=== PATIENT | male | born 1970 | race Caucasian/White ===

== ENCOUNTER 2018-04-26 17:48 | Emergency (ER) | payer SELFPAY ==
[2018-04-26 17:49] VITALS: BP 157/94; PULSE 84; RESP 24; TEMP 38.9; O2SAT 95; BMI 31.4
[2018-04-26 18:48] LABS: Absolute Lymphocyte Count 1.01 X10^3/ul (0.83-4.51); Absolute Neutrophil Count 6.9 X10^3/uL (2.0-7.7); Basophil# 0.01 X10^3/uL; Basophil% 0.1 % (0-1); Eosinophil# 0.02 X10^3/uL; Eosinophils% 0.2 % (0-5); Hematocrit 43.9 % (40-54); Hemoglobin 14.7 g/dl (13.0-16.5); Lymphocyte # 1.01 X10^3/ul (4.0); Lymphocyte % 11.6 % (19-41); Mean Corp Hgb Conc 33.5 g/gl (32-36); Mean Corpuscular Hgb 29.7 pg (27.0-32.0); Mean Corpuscular Volume 88.7 fL (80-94); Mean Platelet Vol. 10.7 fl (6.2-12.0); Monocyte# 0.72 X10^3/uL; Monocyte% 8.3 % (0-10); Neutrophil # 6.94 X10^3/uL (2.7-7.7); Neutrophil % 79.7 % (47-70); Platelet Count 183 K/mm3 (150-450); RBC Distribution Width CV 13.1 % (11.6-14.6); RBC Distribution Width SD 42.2 fl (35.1-43.9); Red Blood Count 4.95 M/mm3 (4.6-6.2); White Blood Count 8.7 K/mm3 (4.4-11.0)
[2018-04-26] MEDS: Acetaminophen 500 MG Tablet 1000 MG PO (18:49)
[2018-04-26] MEDS: 0.9% Normal Saline 1,000 ML 999 ML IV (18:49)
[2018-04-26] MEDS: Ketorolac 30 MG/ML Syringe IV (18:49)
[2018-04-26] MEDS: Ondansetron 4 MG/2 ML Vial IV (18:50)
[2018-04-26 18:54] LABS: POSITIVE COUNT NO; POSITIVE DIFFERENTIAL NO; POSITIVE MORPHOLOGY NO
[2018-04-26 18:59] LABS: ALB/GLOB Ratio 0.9 RATIO (0.9-2.4); AST(SGOT) 18 U/L (15-37); Alanine Aminotransfer ALT/SGPT 28 U/L (16-61); Albumin, Serum 3.5 g/dL (3.2-5.0); Alkaline Phosphatase 61 U/L (45-117); Anion Gap 9 (5-15); BUN 8 mg/dL (7-18); BUN/Creat Ratio 8.4 RATIO (10-20); Calcium,Total 8.7 mg/dL (8.5-10.1); Chloride 104 mmol/L (98-107); Creatinine, Serum 0.96 mg/dL (0.70-1.30); EST Glomerular Filtration Rate 89 mL/min (>60); Est Glom Filt Rate - Afr Amer 108 mL/min (>60); Estimated Creatinine Clearance 92.03 ml/min; Globulin 3.9 g/dL (2.2-4.2); Glucose 124 mg/dL (74-106); Lactic Acid 1.3 mmol/L (0.4-2.0); Potassium 3.5 mmol/L (3.5-5.1); Protein, Total 7.4 g/dL (6.4-8.2); Sodium Level 137 mmol/L (136-145)
[2018-04-26 19:16] VITALS: BP 144/77; PULSE 74; RESP 17; O2SAT 95
[2018-04-26 19:17] LABS: Bacteria 0 SEEN /hpf (None Seen); Mucous, Urine 0 SEEN /hpf (<or=2+); Red Blood Cells-Urine 0 SEEN /hpf (0-5); Squamous Epithelial Cells - UA 0 SEEN /hpf (0-5); White Blood Cells 0 SEEN /hpf (0-5)
[2018-04-26 19:52] LABS: Color, Urine Yellow (Yellow); Glucose, Dipstick Normal (Normal); Ketone-Dipstick Negative (Negative); Leukocyte Esterase-Dipstick Negative /ul (Negative); Nitrite-Dipstick Negative (Negative); Occult Blood-Urine 50 /ul (Negative); Protein-Dipstick Negative (Negative); Urine Bilirubin Dipstick Negative (Negative); Urine Clarity Clear (Clear); Urine Urobilinogen 4 mg/dl (Normal)
[2018-04-26 20:04] VITALS: BP 144/91; PULSE 74; RESP 15; TEMP 37.6; O2SAT 92
--- NOTE | 2018-04-26 21:21 | ED.VISSUMM ---
- ER Visit Summary Date of Service: 04/26/18 Chief Complaint: Fever History of Present Illness: The patient is a [address] Miramontes. He reports he has a fever that began 3 days ago. Spent up to 102?. He is a sore throat is generous in severity. He has a cough that is nonproductive. He has mild shortness of breath. Reports that his abdominal pain is diffuse 3 out of 10 severity. He is nauseated. Is not vomited. He has had 3 episodes of diarrhea today. No blood in his stools or black tarry stools. States he has a headache that is 10 out of 10 severity. He has a history of similar headaches. He has generalized weakness. Physical Examination: Vitals: Stable. Afebrile. General: Well-nourished and well-developed. Head: Normocephalic atraumatic. Neck: Supple, no lymphadenopathy. No JVD. Nontender. Cardiovascular: Regular rate and rhythm. No murmurs. Respiratory: No respiratory distress. Clear to auscultation bilaterally. Abdominal: Soft, nontender, nondistended, normal bowel sounds. No guarding, rebound, or peritoneal signs. Back: Nontender. Extremities: Nontender, no edema. Skin: Normal color, no rash. Neurologic: Alert and oriented ?3. Cranial nerves II through XII are intact. Normal strength and sensation. Psych: Normal affect. Test Results: CBC is more for 7 neutrophils 80 lymphs at 12. Comes is more for glucose 124. Lactic acid is 1.2. LFTs are normal. UA is normal. Rapid strep is negative. Chest x-ray shows a left upper lobe focal infiltrate versus mass. Clinical Impression(s) from Imaging Studies Chest CT 04/26/18 19:36 IMPRESSION: There is a focal dense consolidation measuring up to 4.9 x 5.4 cm with air bronchograms that although may represent focal pneumonia neoplasm could have this appearance and should be excluded. There is reactive appearing mediastinal lymphadenopathy. Recommend consideration for follow-up rhonchi auscultated and/or PET scan when clinically appropriate. Electronically Signed: Aruna Urbina MD at 19:57 EDT Tel , Service support , Emergency Department Course and Treatment: Patient was given Toradol, Zofran, and a liter of normal saline. He is resting comfortably. He is given Tylenol and Levaquin p.o. I had a prolonged discussion the patient and his about the findings on the x-ray and CT. Treatment Plan: Patient will be discharged with a prescription for Levaquin. Instructed follow-up Dr. Miramontes in 1 week for repeat exam. He understands that he needs to have a chest x-ray to make sure that this infiltrate/mass has resolved. If it does not resolve then he needs to have another CT of the chest and further evaluation. Patient and his are happy with this plan. Return to the emergency department for any worsening symptoms. Disposition: To home in improved and stable condition. Impression: 1. Pneumonia, community-acquired. 2. Possible mass left upper lobe. This note was generated with [employer] dictation software. It may contain incorrect words, spelling, and punctuation that were not noted in review of the chart prior to signing ED Disposition - Plan for ED Patient: Disposition: Home or Assisted Living Chief Complaint: Fever Instructions: ED Pneumonia Adult Prescriptions: Levofloxacin [Levaquin] 750 mg PO DAILY #7 tablet Referrals: Vargas Miramontes MD [Primary Care Provider] - 1 Week
[2018-04-26] MEDS: levoFLOXacin 750 MG Tablet PO (21:25)
== END 2018-04-26 21:57 | disposition home or self-care (01) ==
PROVIDERS: Emergency Provider Emergency Medicine; Family Provider Family Medicine; PCP Family Medicine
DX: J18.9 Pneumonia, unspecified organism (principal); E78.00 Pure hypercholesterolemia, unspecified; F32.9 Major depressive disorder, single episode, unspecified; F41.9 Anxiety disorder, unspecified
CPT/HCPCS: 71046; 71250; 80053; 81001; 83605; 85025; 87040; 87086; 87880; 96361; 96374; 96375; 99285; J7030; A4216; J2405

== ENCOUNTER 2018-04-28 21:25 | Emergency (ER) | payer SELFPAY ==
[2018-04-28 21:26] VITALS: BP 139/89; PULSE 79; RESP 20; TEMP 38.4; O2SAT 98; BMI 32.6
--- NOTE | 2018-04-28 21:41 | ED.DCSUM_ITS ---
- ER Visit Summary Date of Service: 04/28/18 Chief Complaint: Fever and cough History of Present Illness: The patient is a [address] Miramontes. He reports his fever and cough began 5 days ago. He was seen in the emergency department 2 days ago and found to have a left upper lobe infiltrate. He has taken his Levaquin, but has not had his dose yet today. He reports that he continues to have fever and has been up to 101.8?. He has left ear pain that comes and goes. Is a mild sore throat. He denies any chest pain or shortness of breath. Reports that he has been nauseated and had a very poor appetite. He is crampy periumbilical pain is 5-10 severity. He has vomited once. No blood in his emesis. He complains of a headache is 10 out of 10 severity and diffuse myalgias. Physical Examination: Vitals: 101.2, 139/89, 79, 20, 98% room air which is not hypoxic. General: Well-nourished and well-developed. Head: Normocephalic atraumatic. Neck: Supple, no lymphadenopathy. No JVD. Nontender. Cardiovascular: Regular rate and rhythm. No murmurs. Respiratory: No respiratory distress. Clear to auscultation bilaterally. Abdominal: Soft, nontender, nondistended, normal bowel sounds. No guarding, rebound, or peritoneal signs. Back: Nontender. Extremities: Nontender, no edema. Skin: Normal color, no rash. Neurologic: Alert and oriented ?3. Cranial nerves II through XII are intact. Normal strength and sensation. Psych: Normal affect. Test Results: CBC is marked for 7 neutrophils 71 and leukocytes of 19. Chem-7 is marked potassium 3.4, BUN is 6, glucose 131. Lactic acid is normal. Chest x -ray shows increased size of left upper lobe infiltrate. CT brain shows no acute disease. Emergency Department Course and Treatment: Patient was treated with Toradol IV, Tylenol p.o., morphine IV, and Zofran IV. He is resting comfortably and feels much improved. He refused an LP. Treatment Plan: I discussed the patient the fact that his infiltrate looks worse. I do not know if this is because he has not had enough time for the antibiotics to help, or represents a treatment failure. I have offered him admission to the hospital. He has refused this. His curb 65 score is 0. His port score is 47. He will be discharged instructions to continue his Levaquin. Follow-up with Dr. Miramontes in 5-7 days for another exam. Be given a prescription for Zofran. Return to the emergency department for any worsening symptoms. Disposition: To home in improved and stable condition. Impression: 1. Pneumonia, community-acquired. This note was generated with [employer] dictation software. It may contain incorrect words, spelling, and punctuation that were not noted in review of the chart prior to signing ED Disposition - Plan for ED Patient: Chief Complaint: General Illness Instructions: ED Pneumonia Adult Prescriptions: Ondansetron [Zofran Odt] 4 mg PO Q8H PRN PRN #10 tablet PRN Reason: Nausea Referrals: Vargas Miramontes MD [Primary Care Provider] - 5-7 Days
[2018-04-28] MEDS: 0.9% Normal Saline 1,000 ML 1000 ML IV (21:55)
[2018-04-28] MEDS: Ketorolac 30 MG/ML Syringe IV (21:57)
[2018-04-28] MEDS: Ondansetron 4 MG/2 ML Vial IV (22:02)
[2018-04-28] MEDS: Morphine 4 MG/ML Syringe IV (22:02)
[2018-04-28 22:13] LABS: Absolute Lymphocyte Count 1.47 X10^3/ul (0.83-4.51); Absolute Neutrophil Count 5.6 X10^3/uL (2.0-7.7); Basophil# 0.01 X10^3/uL; Basophil% 0.1 % (0-1); Eosinophil# 0.02 X10^3/uL; Eosinophils% 0.3 % (0-5); Hematocrit 41.9 % (40-54); Hemoglobin 14.2 g/dl (13.0-16.5); Lymphocyte # 1.47 X10^3/ul (4.0); Lymphocyte % 18.9 % (19-41); Mean Corp Hgb Conc 33.9 g/gl (32-36); Mean Corpuscular Hgb 29.5 pg (27.0-32.0); Mean Corpuscular Volume 87.1 fL (80-94); Monocyte# 0.72 X10^3/uL; Monocyte% 9.3 % (0-10); Neutrophil # 5.55 X10^3/uL (2.7-7.7); Neutrophil % 71.4 % (47-70); POSITIVE COUNT NO; POSITIVE DIFFERENTIAL NO; POSITIVE MORPHOLOGY NO; Platelet Count 207 K/mm3 (150-450); RBC Distribution Width CV 12.9 % (11.6-14.6); RBC Distribution Width SD 41.7 fl (35.1-43.9); Red Blood Count 4.81 M/mm3 (4.6-6.2); White Blood Count 7.8 K/mm3 (4.4-11.0)
[2018-04-28 22:27] LABS: Anion Gap 12 (5-15); BUN 6 mg/dL (7-18); BUN/Creat Ratio 6.5 RATIO (10-20); Calcium,Total 8.7 mg/dL (8.5-10.1); Chloride 104 mmol/L (98-107); Creatinine, Serum 0.92 mg/dL (0.70-1.30); EST Glomerular Filtration Rate 93 mL/min (>60); Est Glom Filt Rate - Afr Amer 113 mL/min (>60); Estimated Creatinine Clearance 96.03 ml/min; Glucose 131 mg/dL (74-106); Potassium 3.4 mmol/L (3.5-5.1); Sodium Level 138 mmol/L (136-145)
[2018-04-28 22:28] LABS: Lactic Acid 1.3 mmol/L (0.4-2.0)
[2018-04-28] MEDS: Acetaminophen 500 MG Tablet 1000 MG PO (22:41)
[2018-04-28 23:42] VITALS: BP 151/102; PULSE 54; RESP 18; O2SAT 99
== END 2018-04-28 23:43 | disposition home or self-care (01) ==
PROVIDERS: Emergency Provider Emergency Medicine; Family Provider Family Medicine; PCP Family Medicine
DX: J18.9 Pneumonia, unspecified organism (principal); F32.9 Major depressive disorder, single episode, unspecified; F41.9 Anxiety disorder, unspecified
CPT/HCPCS: 70450; 71046; 80048; 83605; 85025; 96361; 96374; 96375; 99285; J7030; A4216